=== PATIENT | male | born 1935 | race Hispanic/Latino ===

== ENCOUNTER 2017-11-20 07:31 | Day surgery (SDC) | payer MEDICARE ==
[~2017-11-20] VITALS: Ht 167.6 cm; Wt 72.6 kg
[2017-11-20] VITALS (9 sets, daily range): BP systolic 90–145; BP diastolic 40–94
[~2017-11-20 07:31] MED LIST: ASPI-555 PO; ATOR20TA65 PO; CALC1TAB15 PO; CETI5TAB12 PO; CHOL200013 PO; FERR-82 PO; GABA-531 PO; HYDR12.530 PO; INSU300I SQ; LEVO112T4 PO; MEMA7CAP PO; METF-444 PO; METO-408 PO; MULT-1203 PO; ONDA4TAB9 PO; SACU1TAB PO; SERT100T12 PO; SODIUM CHLORIDE 0.9% 1000ML 1,000 ML IV ONE; TICA90TA PO
[2017-11-20] MEDS ORDERED: PROPOFOL 10 MG/ML 20ML VIAL IV ONE ×3 (09:41→10:09)
== END 2017-11-20 11:29 | disposition home or self-care (01) ==
LOC: DAH 07:31 → ENDO 07:31
PROVIDERS: ATTEND Internal Medicine Gastroenterology
DX: D12.0 Benign neoplasm of cecum (principal); D12.3 Benign neoplasm of transverse colon; K57.30 Diverticulosis of large intestine without perforation or abscess without bleeding; K64.0 First degree hemorrhoids; K29.50 Unspecified chronic gastritis without bleeding; K31.89 Other diseases of stomach and duodenum; K31.7 Polyp of stomach and duodenum; I10 Essential (primary) hypertension; E78.5 Hyperlipidemia, unspecified; E11.9 Type 2 diabetes mellitus without complications; I25.10 Atherosclerotic heart disease of native coronary artery without angina pectoris; K21.9 Gastro-esophageal reflux disease without esophagitis; Z95.0 Presence of cardiac pacemaker
CPT/HCPCS: 43239; 43251; 45380; 45385; 82948 ×3; 88305; 88342; 93005; A4606; J2704 ×3; J7030